=== PATIENT | male | born 1960 | race Caucasian/White ===

== ENCOUNTER 2022-12-21 02:08 | Emergency (ER) | payer SELFPAY ==
[2022-12-21] MEDS ORDERED: Doxycycline Monohydrate 100 MG Cap PO ONE (03:10)
== END 2022-12-21 03:41 | disposition home or self-care (01) ==
LOC: JD.ED 02:08
DX: N45.1 Epididymitis (principal)
CPT/HCPCS: 99283; A9270

== ENCOUNTER 2022-12-28 12:09 | Emergency (ER) | payer SELFPAY ==
[2022-12-28] MEDS ORDERED: HYDROmorphone 0.5 MG/0.5 ML Syringe IVPUSH ONE (13:22)
[2022-12-28] MEDS ORDERED: Metoclopramide 10 MG/2 ML SDV IVPUSH ONE (13:23)
[2022-12-28] MEDS ORDERED: Dextrose 5%-0.9% NaCl 1,000 ML IV SCH (13:30)
[2022-12-28 14:29] LABS: ESTIMATED GFR 95 mL/min (>60)
[2022-12-28] MEDS ORDERED: Lidocaine 2% 11 ML Jelly Filled Syringe ONE (15:18)
[2022-12-28] MEDS ORDERED: Lidocaine 2% 11 ML Jelly Filled Syringe MUCMEM ONE (15:30)
[2022-12-28] MEDS ORDERED: Levofloxacin 750 MG Tab PO ONE (15:57)
[2022-12-28] MEDS ORDERED: Tamsulosin 0.4 MG Cap.ER PO ONE (16:09)
== END 2022-12-28 17:21 | disposition home or self-care (01) ==
LOC: JD.ED 12:09
DX: N45.3 Epididymo-orchitis (principal); N41.0 Acute prostatitis; R33.9 Retention of urine, unspecified
CPT/HCPCS: 36415; 51702; 74176; 80053; 81001; 83735; 85025; 86140; 96361; 96374; 96375; 99284; A9270; J1170; J2765; J7042

== ENCOUNTER 2022-12-29 09:54 | Emergency (ER) | payer SELFPAY | END 2022-12-29 12:26 | disposition home or self-care (01) | LOC: JD.ED 09:54 | DX: R33.9 Retention of urine, unspecified (principal); I10 Essential (primary) hypertension; Z79.899 Other long term (current) drug therapy | CPT/HCPCS: 99283 ==

== ENCOUNTER 2023-01-10 08:57 | Emergency (ER) | payer SELFPAY ==
[2023-01-10] MEDS ORDERED: Acetaminophen/HYDROcodone 325-5 MG Tab PO ONE (09:31)
== END 2023-01-10 13:05 | disposition home or self-care (01) ==
LOC: JD.ED 08:57
DX: N45.1 Epididymitis (principal); I10 Essential (primary) hypertension; Z79.899 Other long term (current) drug therapy
CPT/HCPCS: 36415; 76870; 80053; 81001; 85025; 93975; 99284; A9270